=== PATIENT | male | born 1985 | race Two or more races ===

== ENCOUNTER 2022-11-09 10:13 | Emergency (ER) | payer SELFPAY ==
[2022-11-09 10:42] VITALS: RESP 18; TEMP 97.9; BMI 33.6
[2022-11-09] MEDS ORDERED: ACETAMINOPHEN 500 MG TABLET (FP) PO ONE (11:35)
[2022-11-09] MEDS ORDERED: SODIUM CHLORIDE 0.9% 500 ML INFUS.BAG IV ONE (11:36)
[2022-11-09 12:47] LABS: BASO % 0.4 % (0-2.0); EOS % 1.2 % (0-4.5); HEMATOCRIT 42.2 % (35.4-49); HEMOGLOBIN 14.5 GM/dL (11.7-16.9); LYMPH % 23.1 % (8-40); MCH 30.5 pg (25.7-33.7); MCHC 34.4 g/dl (32.0-35.9); MEAN CELL VOLUME 88.6 fl (80-96); MEAN PLT VOLUME 7.7 fl (7.5-11.1); MONO % 6.8 % (3.8-10.2); NEUT % 68.5 % (42.8-82.8); PLATELET COUNT 219 10^3/uL (134-434); RBC 4.76 M/mm3 (4.00-5.60); RDW 13.5 % (11.9-15.9)
[2022-11-09 13:02] LABS: POTASSIUM 4.3 mmol/L (3.5-5.1)
[2022-11-09 13:06] LABS: BLOOD UREA NITROGEN 16.2 mg/dL (7-18); CALCIUM 8.9 mg/dL (8.5-10.1)
[2022-11-09 13:09] LABS: CREATININE 0.8 mg/dL (0.55-1.3)
[2022-11-09 13:11] LABS: BILIRUBIN,TOTAL 0.6 mg/dL (0.2-1)
[2022-11-09 14:40] VITALS: BP 109/60; PULSE 80
== END 2022-11-09 16:23 | disposition home or self-care (01) ==
LOC: JER 10:13
DX: R42 Dizziness and giddiness (principal); R55 Syncope and collapse; R00.2 Palpitations
CPT/HCPCS: 36415; 80053; 82962; 84484; 85025; 93005; 93010; 99284-25